=== PATIENT | male | born 2000 | race Two or more races ===

== ENCOUNTER 2021-08-16 12:23 | Emergency (ER) | payer OTHER ==
[~2021-08-16] VITALS: Ht 185.4 cm; Wt 100.0 kg
[2021-08-16] MEDS ORDERED: BACITRACIN ZINC OINT UDPKT TOP ONE (13:30)
[2021-08-16 13:40] VITALS: BP 117/87
== END 2021-08-16 13:42 | disposition home or self-care (01) ==
LOC: ER 12:34
DX: R07.89 Other chest pain (principal); S80.212A Abrasion, left knee, initial encounter; Z13.9 Encounter for screening, unspecified; Z86.59 Personal history of other mental and behavioral disorders; Y93.67 Activity, basketball; Y92.89 Other specified places as the place of occurrence of the external cause; Y99.8 Other external cause status
CPT/HCPCS: 99283